=== PATIENT | male | born 1960 | race Caucasian/White ===

== ENCOUNTER → 2017-06-01 | Outpatient (CLI) | payer BC ==
--- NOTE | 2017-06-03 13:19 | US ---
EXAM DESCRIPTION: Chest CLINICAL HISTORY: 57 years Male, SQ MASS RT CHEST WALL COMPARISON: None. FINDINGS: Ultrasound of the right chest wall was performed at the area of a palpable abnormality. At the area of concern, there is an ovoid 1.5 x 2.2 x 0.6 cm slightly hyperechoic structure without internal blood flow, nonspecific. No overlying skin thickening or adjacent edema. No additional mass or fluid collection to explain patient symptoms. IMPRESSION: Ovoid structure just deep to the skin surface at the area of concern without internal blood flow. This probably represents an inclusion cyst or old hematoma. Electronically signed by: Mina Islas MD 06/03/2017 1:18 PM CDT
== END | disposition home or self-care (01) ==
LOC: US 15:57
PROVIDERS: ATTEND Surgery
DX: R22.2 Localized swelling, mass and lump, trunk (principal)

== ENCOUNTER → 2018-05-24 | Outpatient (CLI) | payer BC | LOC: GMAJ 16:43 | PROVIDERS: ATTEND Family Medicine | DX: N40.1 Benign prostatic hyperplasia with lower urinary tract symptoms (principal) ==

== ENCOUNTER → 2019-01-25 | Outpatient (CLI) | payer BC ==
--- NOTE | 2019-01-25 15:03 | US ---
EXAM DESCRIPTION: Venous,Lower Extremity LT (accession [id number]), Venous,Lower Extremity RT (accession [id number]): Ultrasound. CLINICAL HISTORY: LOCALIZED EDEMA COMPARISON: None Available. TECHNIQUE: Two -dimensional and doppler sonographic evaluation of the deep venous system of the bilateral lower extremities. FINDINGS: Doppler evaluation shows normal color flow and normal phasicity and augmentation of the bilateral common femoral veins, femoral veins, popliteal veins, greater saphenous vein, and peroneal veins, Posterior tibial veins. These veins showed normal occlusion with transducer pressure. Two-dimensional survey showed no echogenic clot within these veins. Fluid Collection within the left proximal medial calf abutting the muscles, measuring 6.8 x 2.9 x 1.0 cm. IMPRESSION: Duplex ultrasound evaluation of the bilateral lower extremity deep venous systems showing no evidence of thrombosis. Treadwell's cyst in the posterior medial left calf. Electronically signed by: Dwayne Damon MD 01/25/2019 3:01 PM CDT
--- NOTE | 2019-01-25 15:04 | US ---
EXAM DESCRIPTION: Venous,Lower Extremity LT (accession [id number]), Venous,Lower Extremity RT (accession [id number]): Ultrasound. CLINICAL HISTORY: LOCALIZED EDEMA COMPARISON: None Available. TECHNIQUE: Two -dimensional and doppler sonographic evaluation of the deep venous system of the bilateral lower extremities. FINDINGS: Doppler evaluation shows normal color flow and normal phasicity and augmentation of the bilateral common femoral veins, femoral veins, popliteal veins, greater saphenous vein, and peroneal veins, Posterior tibial veins. These veins showed normal occlusion with transducer pressure. Two-dimensional survey showed no echogenic clot within these veins. Fluid Collection within the left proximal medial calf abutting the muscles, measuring 6.8 x 2.9 x 1.0 cm. IMPRESSION: Duplex ultrasound evaluation of the bilateral lower extremity deep venous systems showing no evidence of thrombosis. Treadwell's cyst in the posterior medial left calf. Electronically signed by: Dwayne Damon MD 01/25/2019 3:01 PM CDT
== END ==
LOC: US 13:23
PROVIDERS: ATTEND Family Medicine
DX: R60.0 Localized edema (principal); M71.22 Synovial cyst of popliteal space [Baker], left knee

== ENCOUNTER → 2019-02-28 | Outpatient (CLI) | payer BC | LOC: GMAJ 10:35 | PROVIDERS: ATTEND Family Medicine | DX: N40.1 Benign prostatic hyperplasia with lower urinary tract symptoms (principal); I10 Essential (primary) hypertension ==